=== PATIENT | female | born 1995 | race Two or more races ===

== ENCOUNTER 2017-07-22 17:43 | Emergency (ER) | END 2017-07-22 19:50 | disposition home or self-care (01) ==

== ENCOUNTER 2017-12-19 23:01 | Emergency (ER) | END 2017-12-20 03:24 | disposition home or self-care (01) ==

== ENCOUNTER 2018-11-04 16:52 | Emergency (ER) | payer BC, OTHER ==
[~2018-11-04] VITALS: Ht 152.4 cm; Wt 91.7 kg
[~2018-11-04 16:52] MED LIST: CEPH-443 PO; FAMO-96 PO; IBUP200C11 PO; LORA-441 PO; NAPR-985 PO; ONDA4TAB8 PO
[2018-11-04 16:57] VITALS: Ht 152.4 cm; Wt 91.7 kg
[2018-11-04] MEDS ORDERED: ONDANSETRON (ODT) 4 MG TAB ODT STA (18:32)
[2018-11-04] MEDS ORDERED: FAMOTIDINE 20 MG TAB PO ONE (19:00)
[2018-11-04] MEDS ORDERED: LIDOCAINE/MYLANTA 40 ML BTL PO ONE (19:00)
[2018-11-04 20:02] VITALS: BP 133/83; PULSE 66; RESP 20
== END 2018-11-04 20:03 | disposition home or self-care (01) ==
LOC: FTE 16:52
DX: N30.01 Acute cystitis with hematuria (principal)
CPT/HCPCS: 80053; 81001; 81025; 83690; 85025; 99283